=== PATIENT | female | born 1985 | race Caucasian/White ===

== ENCOUNTER 2024-05-07 10:00 | Outpatient (RCR) | payer MEDICAID, SELFPAY ==
--- NOTE | 2024-04-10 11:46 | PTNOTE_ITS ---
PT OP Initial Eval Patient Information Outpatient Physical Therapy Treatment Date: 04/10/24 Visit Reasons: Pain in Right shoulder Medical Diagnosis: Right Shoulder Pain Treatment Dx #1: Right Shoulder Pain Start of Care: 04/10/24 Date of Onset: September 2023 Smoking Status Smoking Status: Never smoker Initial Assessment Subjective: Pt is a 39 y/o female reports of right shoulder pain since September 2023 where she fell on her shoulder. Xray negative no MRI has been done. Pt mentioned right shoulder has been repaired before with 7 anchors. Pt has limitation with overhead motions, lifting, chores, self care, cooking, cleaning, and performing recreational activities. Objective: Right Shoulder AROM: all motions are WNL with end range pain into flexion and abduction Right Shoulder MMTs: grossly to 4-/5 Right Scapula MMTs: grossly 3+/5 Special Test (+) neer's (+) active galdamez's Palpation: TTP long head of biceps Assessment: Pt demonstrate right shoulder leading to difficulty with ADLs. Pt will attempt physical therapy if pain persist Pt will be refer back to provider for further consultation. Short Term and [employer] Goals 1) Increase right shoulder AROM WNL in 6 wks to be able to perform overhead motions 2) Increase right shoulder MMTs grossly to 4/5 in 6 wks to be able to perform lifting activities 3) Decrease shoulder pain to 2/10 in 6 wks to be able to perform recreational activities 4) Increase right scapula MMTs grossly to 4-/5 in 6 wks to be able to perform self care activities 5) Indep with HEP Treatment Plan 1) Manual Therapy 2) Therapeutic Activities 3) Therapeutic Exercises 4) Modalities (ice, heat) Frequency and Duration: 2 x wk for 6 wks Certification Dates: 04/10/24 to 07/09/24 Procedure Charges OP PT Eval Mod Complex 30 minutes: Yes
--- NOTE | 2024-04-13 15:39 | PT.ODAYNRPT ---
PT Outpatient Daily Note OP Daily Note Outpatient Physical Therapy Treatment Date: 04/13/24 Visit Reasons: Pain in Right shoulder Subjective: Pt reports she can do most of her light chores and ADL's but pain is present. Pt mentioned pain is in the front of the shoulder and consistent. Objective: Please see flow sheet for ther ex list. Assessment: Interventions completed with moderate pain, pt requires frequent rest breaks. Plan: Continue with POC. Length of Time (minutes) of Treatment: 30 Minutes Procedure Charges Therapeutic Exercise 30 minutes: Yes
--- NOTE | 2024-04-15 11:13 | PT.ODAYNRPT ---
PT Outpatient Daily Note OP Daily Note Outpatient Physical Therapy Treatment Date: 04/15/24 Visit Reasons: Pain in Right shoulder Subjective: Pt reports R shoulder continues to be consistently painful. Objective: Please see flow sheet for ther ex list. Assessment: Pt demonstrates poor activity tolerance due to high pain response. Plan: Continue with POC. Length of Time (minutes) of Treatment: 30 Minutes Procedure Charges Therapeutic Exercise 30 minutes: Yes
--- NOTE | 2024-05-04 09:57 | PT.ODAYNRPT ---
PT Outpatient Daily Note OP Daily Note Outpatient Physical Therapy Treatment Date: 05/04/24 Visit Reasons: Pain in Right shoulder Subjective: Pt's shoulder feels about the same and continues to hurt. Objective: Please see flow chart for list of ther ex per formed Assessment: tolerate exercises performed; difficulty completing finger ladder exercise due to pain Plan: Continue with PT Length of Time (minutes) of Treatment: 30 Minutes Procedure Charges Therapeutic Exercise 30 minutes: Yes
--- NOTE | 2024-05-07 10:46 | PTNOTE_ITS ---
PT Outpatient Daily Note OP Daily Note Outpatient Physical Therapy Treatment Date: 05/07/24 Visit Reasons: Pain in Right shoulder Subjective: Pt reports R shoulder is more sore and painful today. Objective: Please see flow sheet for ther ex list. Assessment: Discontinued UBE exercise due to increase shoulder pain. Plan: Continue with POC. Length of Time (minutes) of Treatment: 30 Minutes Procedure Charges Therapeutic Exercise 30 minutes: Yes
== END 2024-05-08 23:59 | disposition home or self-care (01) ==
LOC: CPTX 10:00
PROVIDERS: PCP Physician Assistant; Referring Provider Physician Assistant; Visit Provider Physician Assistant
DX: M25.511 Pain in right shoulder (principal)
CPT/HCPCS: 97110; 97162

== ENCOUNTER 2024-06-04 10:30 | Outpatient (RCR) | payer MEDICAID, SELFPAY ==
--- NOTE | 2024-06-04 16:08 | PT.ODS1RPT ---
PT OP Progress/Discharge Note Date of Service: 06/04/24 Progress Note/DC Note Progress Note/Discharge Note: DC Note Patient Information Visit Reasons: Pain in RT shoulder Medical Diagnosis: Right Shoulder Pain Treatment Dx #1: Right Shoulder Pain Service Discharge Date: 06/04/24 Status Subjective: Pt's shoulder continues to hurt deep in the socket. Pt has limitaiton with all ADLs and pain has not improved since starting physical therapy. Pt will like to follow up with MD for further consultation. Objective: RIght Shoulder AROM: all motions are WNL with end range pain Right Shoulder MMTs: grossly 4-/5 Right Scapula MMTs: grossly 3+/5 Special Test (+) neer's (+) active galdamez's Assessment: Pt demonstrate functional right shoulder mobility and strength, however, continues to have pain leading to difficulty with ADLs. Pt will no longer benefit from physical therapy due to plateau towards goals. Recommend shoulder MRI to help rule in/out nature of pain. Pt was instructed on HEP last session and educated to continue exercises to maintain overall mobility. Pt performed all exercises safely, thank you for your referrals. Plan: D/C home with HEP and follow up with MD PRN Recommend shoulder MRI Procedure Charges Therapeutic Exercise 30 minutes: Yes
== END 2024-06-05 23:59 | disposition home or self-care (01) ==
LOC: CPTX 10:30
PROVIDERS: PCP Physician Assistant; Referring Provider Physician Assistant; Visit Provider Physician Assistant
DX: M25.511 Pain in right shoulder (principal); S49.91XD Unspecified injury of right shoulder and upper arm, subsequent encounter; W19.XXXD Unspecified fall, subsequent encounter
CPT/HCPCS: 97110

== ENCOUNTER → 2024-08-05 | Outpatient (CLI) | payer MEDICAID, SELFPAY ==
--- NOTE | 2024-08-05 15:00 | XR_ITS ---
MRI shoulder, right, without contrast. Date and time: August 05, 2024 1513 hours INDICATIONS: Patient fell September 2023 with injury to the shoulder, persistent shoulder pain Technique: Multiple axial, sagittal and coronal sections of the shoulder have been obtained. Siemens high-resolution 1.5 [employer]ora MRI scanner is utilized. Axial fat-suppressed sections, TR 2350, TE 18 T2-weighted coronal fat-saturated images, TR 3500, TE 7100 T1-weighted coronal images, TR 500, TE 15 T2-weighted sagittal fat-saturated images, TR 3500, TE 57 T1-weighted sagittal sections, TR 504, TE 13. Findings: Supraspinatus tendon insertion is intact. Infraspinatus tendon insertion is intact. Subscapularis insertion is intact. Subscapularis bursa is not seen. Long head of the biceps is in the bicipital groove. No definite tear of the biceps superior labral anchor is seen. Retraction of the musculotendinous junction of the rotator cuff is not seen . Tendinosis pattern is mild. Distance between the acromium and humeral head is 5.6 mm Atrophy of the supraspinatus muscle is mild . Atrophy of the infraspinatus muscle is not seen. Sagittal sections demonstrate a horizontal acromion. Acromioclavicular joint demonstrates mild osteoarthritis . Osacromiale is not identified. During and irregularity anterior superior labral margins. Bony glenoid fossa on the sagittal sections does not demonstrate osseous defect. Occult fracture or area of avascular necrosis is not seen. Acromioclavicular joint separation is not visible. Defect in the posterolateral margin of the humeral head is not seen Impression: Rotator cuff intact Fraying and irregularity anterior superior labral margins
== END | disposition home or self-care (01) ==
LOC: SMRI 14:44
PROVIDERS: PCP Physician Assistant; Referring Provider Physician Assistant; Visit Provider Internal Medicine
DX: M25.811 Other specified joint disorders, right shoulder (principal)
CPT/HCPCS: 73221